=== PATIENT | male | born 1950 | race Caucasian/White ===

== ENCOUNTER → 2017-04-22 | Outpatient (CLI) | payer MEDICARE ==
[~2017-04-22] MED LIST: ASPIRIN 81MG TA81 MG PO; IBUPROFEN200 MG PO; LASIX 40MG. TAB40 MG PO; MICRO-K 10 MEQ10 MEQ PO; PERCOCET 5/3251 EACH PO
[2017-04-22 14:31] LABS: LYMPH % 21.7 % (10-50)
[2017-04-22 14:37] LABS: HEMOGLOBIN 12.8 g/dL (14.1-18.0)
[2017-04-22 14:39] LABS: BUN 27 mg/dL (7-18)
[2017-04-22 14:53] LABS: GFR (ESTIMATED) 55 ML/MIN (>60)
[2017-04-23 06:37] LABS: Vitamin D, 25-Hydroxy 27.7 ng/mL (30.0-100.0)
[2017-04-24 16:37] LABS: Free Testosterone(Direct) 4.9 pg/mL (6.6-18.1)
[2017-04-25 07:37] LABS: Testosterone, Total, LC/MS 230.4 ng/dL (264.0-916.0)
== END ==
LOC: LAB 13:30
PROVIDERS: Physician Assistant
DX: I10 Essential (primary) hypertension (principal); R53.82 Chronic fatigue, unspecified; E55.9 Vitamin D deficiency, unspecified; Z79.899 Other long term (current) drug therapy